=== PATIENT | male | born 1995 | race Caucasian/White ===

== ENCOUNTER → 2018-11-08 | Outpatient (CLI) | payer OTHER ==
--- NOTE | 2018-11-08 17:02 | KCIC ---
EXAM: MRI LEFT ANKLE/HINDFOOT DATE: 11/08/2018 1:15 PM CLINICAL INDICATION: Left ankle pain, Achilles rupture, injury 2 days ago. COMPARISON: None. TECHNIQUE: Multiplanar, multisequence MR imaging of the left ankle without IV contrast. FINDINGS: No significant ankle joint effusion. Tendons: Posterior tibialis, flexor digitorum longus and flexor hallucis longus tendons are intact. Peroneus longus and peroneus brevis tendons are intact. The peroneal tendons are anatomically positioned behind the lateral malleolus. Anterior tibialis, extensor digitorum longus and extensor hallucis longus tendons are intact. There is a background of diffuse Achilles tendon thickening. Achilles tendon is biconvex in appearance measuring up to 1.4 cm in thickness. Approximately there is a full-thickness tear of the Achilles tendon at the myotendinous junction with approximately 9 mm gap containing fluid and fat between the principal fragments. Distally, approximately 5-6 cm from the calcaneal attachment there is full-thickness fluid cleft extending partially through the Achilles tendon consistent with partial thickness longitudinal tear. Plantar fascia intact without marginal osteitis or soft tissue swelling. Physiologic fluid at the retrocalcaneal bursa. Ligaments: Medial deltoid stabilizers are intact. Lateral collateral stabilizing ligaments including the anterior talofibular ligament are intact. Anterior and posterior tibiofibular ligaments are intact. Spring ligament intact. Evaluation of the sinus tarsi limited given surgical hardware resulting in associated streak artifact. Spaces/Places: Tarsal tunnel within normal limits, without mass lesion. Articular Cartilage/joint line: Articular cartilage at the tibiotalar joint preserved. Negative osteochondral lesion of the talar dome. No evidence for fracture or osteonecrosis. IMPRESSION: 1. Full-thickness tear of the left Achilles tendon at the myotendinous junction, with 9 mm gap. 2. Partial-thickness longitudinal tear of the left Achilles tendon with fluid cleft approximately 5-6 cm from the attachment. 3. Diffuse left Achilles tendon thickening consistent with a background of tendinosis. Electronically signed by: Gera Lora MD (11/08/2018 4:59 PM) [id number]
--- NOTE | 2018-11-08 17:14 | KCIC ---
EXAM: MRI Right ANKLE/HINDFOOT DATE: 11/08/2018 2:00 PM CLINICAL INDICATION: Right ankle pain. History of rupture at the distal attachment. COMPARISON: None. TECHNIQUE: Multiplanar, multisequence MR imaging of the right ankle was performed without IV contrast. FINDINGS: No ankle joint effusion. Tendons: Posterior tibialis, flexor digitorum longus and flexor hallucis longus tendons are intact. Peroneus longus and peroneus brevis tendons are intact. The peroneal tendons are anatomically positioned behind the lateral malleolus. Anterior tibialis, extensor digitorum longus and extensor hallucis longus tendons are intact. Biconvex appearance of the Achilles tendon with Achilles tendon measuring up to 1.5 cm in transverse dimension. Longitudinal intrasubstance fluid signal consistent with intrasubstance tear. Mild background of increased signal within the Achilles tendon likely from tendinosis. No full-thickness tear is identified. Plantar fascia intact without marginal osteitis or soft tissue swelling. Physiologic fluid at the retrocalcaneal bursa. Ligaments: Medial deltoid stabilizers are intact. Lateral collateral stabilizing ligaments including the anterior talofibular ligament are intact. Anterior and posterior tibiofibular ligaments are intact. Spring ligament intact. Spaces/Places: Evaluation of sinus tarsi limited given associated hardware resulting in susceptibility artifact Tarsal tunnel within normal limits, without mass lesion. Articular Cartilage/joint line: Articular cartilage at the tibiotalar joint preserved. Negative osteochondral lesion of the talar dome. First TMT joint degenerative changes are seen with subchondral edema Bone/Bone Marrow: Generally normal bone marrow signal. Negative focal bone marrow replacement or bone marrow edema pattern. IMPRESSION: Diffuse thickening mild increased signal of the right Achilles tendon consistent with background of tendinosis. Longitudinal fluid signal is seen within the distal Achilles tendon consistent with interstitial/intrasubstance tear. No evidence for surface extension or full-thickness tear. Electronically signed by: Gera Lora MD (11/08/2018 5:11 PM) [id number]
== END | disposition home or self-care (01) ==
LOC: KCIC MRI 13:13
PROVIDERS: ATTEND Orthopaedic Surgery
DX: S86.012A Strain of left Achilles tendon, initial encounter (principal); X58.XXXA Exposure to other specified factors, initial encounter; Y93.89 Activity, other specified; Y92.89 Other specified places as the place of occurrence of the external cause; Y99.8 Other external cause status
CPT/HCPCS: 73721